=== PATIENT | female | born 1965 | race Caucasian/White ===

== ENCOUNTER 2019-01-23 09:57 | Inpatient (IN) | payer OTHER ==
[2019-01-23] MEDS: IODIXANOL LOCM 100 ML BTL (10:17)
[2019-01-23] MEDS: SOD CHLORIDE 0.9% 100 ML (10:17)
[2019-01-23 10:22] LABS: ADD MAN DIFF? NO
[2019-01-23 10:25] LABS: BASOPHIL # 0.1 10^3/ul (0.0-0.1); BASOPHILS % 0.7 % (0.0-2.0); EOSINOPHILS # 0.1 10^3/ul (0.0-0.5); EOSINOPHILS % 1.7 % (0.0-7.0); HEMATOCRIT 38.5 % (37.0-47.0); HEMOGLOBIN 12.4 g/dl (12.0-16.0); LYMPHOCYTES # 2.5 10^3/ul (0.8-2.9); LYMPHOCYTES % 35.8 % (15.0-51.0); MEAN CORPUSCULAR HEMOGLOBIN 27.4 pg (29.0-33.0); MEAN CORPUSCULAR HGB CONC 32.2 g/dl (32.0-37.0); MEAN PLATELET VOLUME 9.9 fl (7.4-10.4); MONOCYTE # 0.4 10^3/ul (0.3-0.9); MONOCYTES % 5.5 % (0.0-11.0); NEUTROPHIL # 3.8 10^3/ul (1.6-7.5); PLATELET COUNT 332 10^3/UL (140-415); RED BLOOD COUNT 4.53 10^6/ul (4.20-5.40); RED CELL DISTRIBUTION WIDTH 14.2 % (11.5-14.5)
[2019-01-23 10:25] LABS: WHITE BLOOD COUNT 6.9 10^3/ul (4.8-10.8)
[2019-01-23 10:42] LABS: ANION GAP 10 (5-13); BLOOD UREA NITROGEN 9 mg/dl (7-20); CALCIUM 10.1 mg/dl (8.4-10.2); CARBON DIOXIDE 27 mmol/L (21-31); CHLORIDE 104 mmol/L (97-110); CHOL/HDL RATIO 3.7 RATIO; CHOLESTEROL 207 mg/dl (100-200); CREATINE KINASE 72 IU/L (23-200); CREATININE 1.03 mg/dl (0.44-1.00); Estimated GFR 56 mL/min (>60); GLUCOSE 112 mg/dl (70-220); HDL CHOLESTEROL 55 mg/dl (37-92); LDL CHOLESTEROL,CALCULATED 106 mg/dl; POTASSIUM 4.2 mmol/L (3.5-5.1); SODIUM 141 mmol/L (135-144); TRIGLYCERIDES 232 mg/dl (0-149)
[2019-01-23 10:43] LABS: INR 1.12; PROTIME 14.5 Sec (11.9-14.9); PT RATIO 1.1
[2019-01-23 10:44] LABS: ETHANOL < 10.0 mg/dl (0-0); PARTIAL THROMBOPLASTIN TIME 36.3 Sec (23.0-35.0)
[2019-01-23 10:54] LABS: CK INDEX 0.3; CK-MB < 0.22 ng/ml (0.0-2.4); TROPONIN-I < 0.012 ng/ml (0.000-0.120)
[2019-01-23] MEDS ORDERED: ONDANSETRON 4 MG INJ IV (11:00)
[2019-01-23 11:11] LABS: HEMOGLOBIN A1C 6.3 % (0-5.9)
[2019-01-23] MEDS: NICARDipine HCL 30 MG CAPSULE PO (11:27)
[2019-01-23] MEDS: SOD CHLORIDE 0.9% 1,000 ML IV ×2 (11:27→15:40)
[2019-01-23 12:26] LABS: AMPHETAMINE/METHAMPHETAMINE Negative (NEGATIVE); BARBITURATES Negative (NEGATIVE); BENZODIAZEPINES Negative (NEGATIVE); CANNABINOIDS Negative (NEGATIVE); COCAINE Negative (NEGATIVE); OPIATES Negative (NEGATIVE)
[2019-01-23] MEDS: ACETAMINOPHEN 325 MG TAB PO (14:34)
[2019-01-23] MEDS ORDERED: GLUCOSE GEL 15 GRAM TUBE PO ×2 (15:30)
[2019-01-23] MEDS ORDERED: DEXTROSE 50% 50 ML SYRINGE IV ×2 (15:30)
[2019-01-23] MEDS ORDERED: NACL 0.9% 3 ML SYG IV (15:30)
[2019-01-23] MEDS ORDERED: GLUCOSE GEL 15 GRAM TUBE BUCCAL (15:30)
[2019-01-23] MEDS ORDERED: GLUCAGON 1 MG INJ IM (15:30)
[2019-01-23] MEDS: LORAZEPAM 2 MG INJ IV ×2 (18:07→21:18)
[2019-01-23] MEDS: metFORMIN 500 MG TAB PO (18:09)
[2019-01-23] MEDS: ASPIRIN 81 MG TAB PO (20:46)
[2019-01-23] MEDS: ATORVASTATIN 10 MG TAB PO (20:46)
[2019-01-23] MEDS: METOPROLOL 25 MG TAB PO (20:47)
[2019-01-23] MEDS: INSULIN ASPART [NOVOLOG] 3 ML PEN SC (20:51)
[2019-01-23] MEDS ORDERED: APIXABAN 5 MG TABLET PO (21:00)
[2019-01-24 06:14] LABS: HDL CHOLESTEROL 48 mg/dl (37-92); LDL CHOLESTEROL,CALCULATED 103 mg/dl; TRIGLYCERIDES 206 mg/dl (0-149)
[2019-01-24 06:14] LABS: CHOLESTEROL 192 mg/dl (100-200)
[2019-01-24] MEDS: INSULIN ASPART [NOVOLOG] 3 ML PEN SC ×4 (07:38→20:44)
[2019-01-24] MEDS: METOPROLOL 25 MG TAB PO ×2 (08:19→20:41)
[2019-01-24] MEDS: ASPIRIN 81 MG TAB PO (08:19)
[2019-01-24] MEDS: LOSARTAN 50 MG TAB PO (08:20)
[2019-01-24] MEDS: metFORMIN 500 MG TAB PO ×2 (08:22→17:16)
[2019-01-24] MEDS: APIXABAN 5 MG TABLET PO (20:40)
[2019-01-24] MEDS: ATORVASTATIN 10 MG TAB PO (20:41)
[2019-01-24] MEDS: LORAZEPAM 2 MG INJ IV (21:17)
[2019-01-24] MEDS: HYDROmorphONE 0.5 MG/0.5 ML SYG IV (23:14)
[2019-01-25] MEDS: INSULIN ASPART [NOVOLOG] 3 ML PEN SC ×4 (07:49→20:32)
[2019-01-25] MEDS: metFORMIN 500 MG TAB PO ×2 (07:50→17:29)
[2019-01-25] MEDS: APIXABAN 5 MG TABLET PO ×2 (08:06→20:41)
[2019-01-25] MEDS: METOPROLOL 25 MG TAB PO ×2 (08:06→20:39)
[2019-01-25] MEDS: LOSARTAN 50 MG TAB PO (08:07)
[2019-01-25] MEDS: HYDROmorphONE 0.5 MG/0.5 ML SYG IV (10:32)
[2019-01-25] MEDS: ATORVASTATIN 10 MG TAB PO (20:41)
[2019-01-26] MEDS: INSULIN ASPART [NOVOLOG] 3 ML PEN SC (07:49)
[2019-01-26] MEDS: LOSARTAN 50 MG TAB PO (08:48)
[2019-01-26] MEDS: APIXABAN 5 MG TABLET PO (08:49)
[2019-01-26] MEDS: METOPROLOL 25 MG TAB PO (08:49)
[2019-01-26] MEDS: metFORMIN 500 MG TAB PO (08:49)
== END 2019-01-26 10:37 | disposition home or self-care (01) | DRG 552 ==
LOC: 6WM 01-25 11:47 → E/R 09:57 → 6WM 11:00
DX: M50.323 Other cervical disc degeneration at C6-C7 level (principal); G81.94 Hemiplegia, unspecified affecting left nondominant side; I48.0 Paroxysmal atrial fibrillation; I10 Essential (primary) hypertension; E11.9 Type 2 diabetes mellitus without complications; J45.909 Unspecified asthma, uncomplicated; Z79.4 Long term (current) use of insulin
CPT/HCPCS: 36415; 70450; 70551; 71045; 72156; 80048; 80061; 80307; 82550; 82553; 82962; 83036; 84484; 85025; 85610; 85730; 92610; 93005; 97116; 97162; 97165; 97530; 99285-25